=== PATIENT | male | born 1960 | race Caucasian/White ===

== ENCOUNTER 2022-07-19 10:53 | Outpatient (CLI) | payer BC, SELFPAY | END 2022-07-19 10:54 | disposition home or self-care (01) | LOC: INJ CL 10:56 | PROVIDERS: PCP Family Medicine; Visit Provider Family Medicine | DX: M17.12 Unilateral primary osteoarthritis, left knee (principal); M25.562 Pain in left knee | CPT/HCPCS: 64454 ==

== ENCOUNTER 2022-08-30 12:10 | Outpatient (CLI) | payer BC, SELFPAY | END 2022-08-30 12:11 | disposition home or self-care (01) | LOC: INJ CL 12:10 | PROVIDERS: PCP Family Medicine; Visit Provider Family Medicine | DX: G89.29 Other chronic pain (principal); M17.12 Unilateral primary osteoarthritis, left knee; M25.462 Effusion, left knee; M25.562 Pain in left knee | CPT/HCPCS: 64624; J2250; J3010 ==

== ENCOUNTER 2024-06-24 10:30 | Outpatient (CLI) | payer BC, SELFPAY | END 2024-06-24 10:31 | disposition home or self-care (01) | PROVIDERS: PCP Family Medicine; Visit Provider Family Medicine | DX: R53.83 Other fatigue (principal); R79.89 Other specified abnormal findings of blood chemistry; E61.1 Iron deficiency; M17.12 Unilateral primary osteoarthritis, left knee; Z13.6 Encounter for screening for cardiovascular disorders; Z12.5 Encounter for screening for malignant neoplasm of prostate; Z13.9 Encounter for screening, unspecified | CPT/HCPCS: 80048; 80061; 82306; 82728; 85025; G0103 ==